=== PATIENT | female | born 1930 | race Asian ===

== ENCOUNTER 2018-03-28 04:24 | Inpatient (IN) | payer MEDICAID ==
[~2018-03-28] VITALS: Ht 134.6 cm; Wt 77.1 kg
[~2018-03-28 04:24] MED LIST: ACET-2178 PO; ATOR20TA65 PO; DILT120C88 PO; DILT240C91 PO; FAMO20TA8 PO; FERR-63 PO; FERR325T23 PO; FURO20TA4 PO; HYDR12.529 PO; LEVO250T2 PO; LOSA100T14 PO; LOSA100T3 PO; MONT10TA21 PO; P20 PO; PANT40TA4 PO
[2018-03-28 06:25] LABS: HEMATOCRIT. 31.1 % (36.0-48.0); HEMOGLOBIN. 9.7 g/dL (12.0-16.0); MEAN CORPUSCULAR HEMOGLOBIN 24.7 pg (28.0-32.0); MEAN CORPUSCULAR VOLUME 79.5 fL (81.0-99.0); MEAN PLATELET VOLUME 9.3 fl (7.4-10.4); PLATELET 241 x1000/uL (130-400); RED BLOOD CELL COUNT 3.91 mill/uL (4.2-5.4); RED CELL DISTRIBUTION WIDTH 15.9 % (11.6-14.6)
[2018-03-28 07:17] LABS: CHLORIDE 103 mEq/L (98-107)
[2018-03-28] MEDS ORDERED: OSELTAMIVIR 75MG CAPSULE PO ONE (09:15)
[2018-03-28 09:30] LABS: PLATELET ESTIMATE NORMAL
[2018-03-28] MEDS ORDERED: ACETAMINOPHEN 325MG TABLET PO ONE (09:45)
[2018-03-28] MEDS ORDERED: LABETALOL HCL 20MG/4ML CARPUJECT IV ONE (09:45)
[2018-03-28] MEDS ORDERED: IPRATROPIUM/ALBUTEROL 0.5-3(2.5)MG/3ML NEB HHN PRN (11:00)
[2018-03-28] MEDS ORDERED: DOCUSATE SODIUM 250MG CAPSULE PO PRN (11:00)
[2018-03-28] MEDS ORDERED: ONDANSETRON HCL 4MG/2ML INJ IV PRN (11:00)
[2018-03-28] MEDS ORDERED: ACETAMINOPHEN 325MG TABLET PO PRN (11:00)
[2018-03-28] MEDS ORDERED: CLONIDINE 0.1MG TABLET PO PRN (11:00)
[2018-03-28 11:25] VITALS: BP 131/60
[2018-03-28] MEDS: GUAIFENESIN-DM 200MG-20MG/10ML UDC PO PRN (12:13)
[2018-03-28] MEDS ORDERED: DOCU-150 MT (12:24)
[2018-03-28] MEDS ORDERED: CARV3.1242 MT (12:24)
[2018-03-28] MEDS ORDERED: FOLI-43 MT (12:24)
[2018-03-28] MEDS ORDERED: ASPI-1158 MT (12:24)
[2018-03-28] MEDS ORDERED: VERA80TA2 MT (12:24)
[2018-03-28] MEDS ORDERED: SODIUM CHLORIDE 0.9% 1,000 ML IV ONE (12:45)
[2018-03-28] MEDS: ATORVASTATIN CALCIUM 20MG TABLET PO SCH (20:40)
[2018-03-28] MEDS: AMLODIPINE 5MG TABLET PO SCH (20:41)
[2018-03-28] MEDS ORDERED: OSELTAMIVIR 75MG CAPSULE PO SCH (21:00)
[2018-03-28 22:05] VITALS: BP 187/69
[2018-03-29] VITALS: BP 165/67
[2018-03-29 06:20] VITALS: BP 169/67
[2018-03-29 07:22] LABS: HEMATOCRIT. 28.7 % (36.0-48.0); HEMOGLOBIN. 9.1 g/dL (12.0-16.0); MEAN CORPUSCULAR VOLUME 79.3 fL (81.0-99.0); MEAN PLATELET VOLUME 8.3 fl (7.4-10.4); PLATELET 165 x1000/uL (130-400); RED BLOOD CELL COUNT 3.62 mill/uL (4.2-5.4); RED CELL DISTRIBUTION WIDTH 15.5 % (11.6-14.6)
[2018-03-29 07:26] LABS: CHLORIDE 102 mEq/L (98-107)
[2018-03-29 07:32] LABS: PHOSPHORUS 3.9 mg/dL (2.5-4.9)
[2018-03-29 07:35] LABS: CREATINE KINASE 113 IU/L (26-192)
[2018-03-29 08:00] VITALS: BP 146/57
[2018-03-29] MEDS: AMLODIPINE 5MG TABLET PO SCH ×2 (10:24→21:02)
[2018-03-29] MEDS: GUAIFENESIN-DM 200MG-20MG/10ML UDC PO PRN ×2 (10:24→16:13)
[2018-03-29] MEDS: OSELTAMIVIR 30MG CAPSULE PO SCH (10:24)
[2018-03-29 11:35] LABS: CLARITY URINE CLEAR (CLEAR); COLOR URINE YELLOW (YELLOW); KETONES URINE NEGATIVE (NEGATIVE); LEUKOCYTE ESTERASE URINE NEGATIVE (NEGATIVE); NITRITE URINE NEGATIVE (NEGATIVE); OCCULT BLOOD URINE TRACE (NEGATIVE); PH URINE 6.5 (4.5-8.0); PROTEIN URINE 1+ (NEGATIVE); SPECIFIC GRAVITY URINE 1.017 (1.005-1.030)
[2018-03-29] MEDS ORDERED: IPRATROPIUM/ALBUTEROL 0.5-3(2.5)MG/3ML NEB HHN PRN (17:15)
[2018-03-29 18:55] LABS: PLATELET ESTIMATE NORMAL
[2018-03-29 20:00] VITALS: BP 117/61
[2018-03-29] MEDS: ATORVASTATIN CALCIUM 20MG TABLET PO SCH (21:01)
[2018-03-29] MEDS: IPRATROPIUM/ALBUTEROL 0.5-3(2.5)MG/3ML NEB HHN SCH (21:18)
[2018-03-30] VITALS: BP 130/68
[2018-03-30] MEDS: IPRATROPIUM/ALBUTEROL 0.5-3(2.5)MG/3ML NEB HHN SCH ×4 (01:00→15:57)
[2018-03-30 04:00] VITALS: BP 133/64
[2018-03-30 08:00] VITALS: BP 142/64
[2018-03-30 08:13] LABS: MICROALBUMIN RANDOM URINE 119.9 ug/mL (Not Estab.)
[2018-03-30] MEDS: AMLODIPINE 5MG TABLET PO SCH (09:09)
[2018-03-30] MEDS: OSELTAMIVIR 30MG CAPSULE PO SCH (09:09)
[2018-03-30] MEDS ORDERED: THROAT LOZENGES-BENZOCAINE/MENTH/CETYLPYRD CL LOZENGES MM PRN (10:15)
[2018-03-30 12:00] VITALS: BP 134/54
[2018-03-30 16:35] VITALS: BP 134/54
== END 2018-03-30 17:10 | disposition home or self-care (01) | DRG 720 ==
LOC: ER 04:24 → 8WST 09:48 → EDBEDREQ 09:50 → ENRESERV 10:39
PROVIDERS: ADMIT Internal Medicine; ATTEND Internal Medicine
DX: A41.9 Sepsis, unspecified organism (principal); J96.00 Acute respiratory failure, unspecified whether with hypoxia or hypercapnia; J84.9 Interstitial pulmonary disease, unspecified; N18.4 Chronic kidney disease, stage 4 (severe); I48.91 Unspecified atrial fibrillation; N17.9 Acute kidney failure, unspecified; E87.1 Hypo-osmolality and hyponatremia; E86.0 Dehydration; D63.8 Anemia in other chronic diseases classified elsewhere; I13.0 Hypertensive heart and chronic kidney disease with heart failure and stage 1 through stage 4 chronic kidney disease, or unspecified chronic kidney disease; I50.32 Chronic diastolic (congestive) heart failure; Z68.41 Body mass index [BMI] 40.0-44.9, adult; E66.9 Obesity, unspecified; J10.1 Influenza due to other identified influenza virus with other respiratory manifestations; E78.5 Hyperlipidemia, unspecified; I35.0 Nonrheumatic aortic (valve) stenosis; N27.0 Small kidney, unilateral; K21.9 Gastro-esophageal reflux disease without esophagitis; Z96.649 Presence of unspecified artificial hip joint; Z79.899 Other long term (current) drug therapy; Z87.440 Personal history of urinary (tract) infections; Z79.1 Long term (current) use of non-steroidal anti-inflammatories (NSAID); Z79.2 Long term (current) use of antibiotics
CPT/HCPCS: 36415; 71045; 76770; 80048; 82043; 82550; 82570; 83036; 83735; 83880; 84100; 84156; 84300; 84484; 87077; 87186; 87804; 93005; 93970; 94640; 96374; 99285; J3490; J7620